=== PATIENT | female | born 1985 | race Caucasian/White ===

== ENCOUNTER 2017-08-06 14:49 | Emergency (ER) | payer OTHER, MEDICAID ==
[~2017-08-06] VITALS: Ht 170.2 cm; Wt 114.8 kg
[2017-08-06 15:05] VITALS: BP 122/87
--- NOTE | 2017-08-06 15:48 | NUR ---
31/F BIB SELF C/O vaginal bleeding x2 weeks; changing a pad every 1 hour.hx GALL BLADDER REMOVAL 2010, 3 C- SECTIONS, SURG FOR RIGHT ECTOPIC PREG 2005. DENIES N/V/D. AAOX4 WITH EVEN AND STEADY GAIT; LUNGS CLEAR BL. PATIENT STATES PAIN OF 0/10 AT THIS TIME. PATIENT POSITIONED FOR COMFORT; HOB ELEVATED; BEDRAILS UP X2; BED DOWN. ER MD MADE AWARE OF PT STATUS.
[2017-08-06 15:56] LABS: BASOPHILS # (AUTO) 0.3 K/uL (0.00-0.22); EOSINOPHILS # (AUTO) 0.2 K/uL (0-0.4); HEMATOCRIT 32.4 % (36-48); HEMOGLOBIN 10.6 g/dL (12.0-16.0); LYMPHOCYTES # (AUTO) 2.8 K/uL (2.5-16.5); MEAN CORPUSCULAR HEMOGLOBIN 27 pg (27-31); MEAN CORPUSCULAR HGB CONC 33 g/dL (33-37); MEAN CORPUSCULAR VOLUME 80.8 fL (80-94); MONOCYTES # (AUTO) 0.7 K/uL (0.8-1.0); NEUTROPHILS # (AUTO) 5.5 K/uL (1.8-7.7); PLATELET COUNT (AUTO) 307 K/uL (140-450); RED BLOOD CELL COUNT(AUTO) 4.01 MIL/uL (4.20-5.40); RED CELL DISTRIBUTION WIDTH 12.9 % (11.6-13.7); WHITE BLOOD COUNT (AUTO) 9.5 K/uL (4.8-10.8)
[2017-08-06 16:12] LABS: PROTHROMBIN TIME 10.4 secs (10.8-13.4)
[2017-08-06 16:16] LABS: ANION GAP 12.2 (8-16); CARBON DIOXIDE 26.4 mmol/L (21-32); CREATININE 0.7 mg/dL (0.6-1.3); POTASSIUM 3.6 mmol/L (3.5-5.1)
[2017-08-06 16:22] LABS: ALBUMIN 3.6 g/dL (3.4-5.0); TOTAL BILIRUBIN 0.2 mg/dL (0.0-1.0)
--- NOTE | 2017-08-06 16:29 | NUR ---
Mary liz in ED - 08/06/17 at 1629 by [facility] Crutches dispensed. Taught proper use BY TRAVIS SHERIFF, patient returned demo.
[2017-08-06 17:01] VITALS: BP 111/75
--- NOTE | 2017-08-06 17:01 | NUR ---
Patient seen and discharged by Dr. Preito with v/s stable. Written and verbal after care instructions given and explained. Patient alert, oriented and verbalized understanding of instructions. Ambulatory with steady gait. All questions addressed prior to discharge. ID band removed. Patient advised to follow up with PMD. Rx of Provera given. Patient educated on indication of medication including possible reaction and side effects. Opportunity to ask questions provided and answered.
== END 2017-08-06 17:01 | disposition home or self-care (01) ==
LOC: MED 14:49
DX: N93.8 Other specified abnormal uterine and vaginal bleeding (principal)
CPT/HCPCS: 36415; 76830; 80053; 85025; 85610; 85730; 86900; 86901; 99285; Q0092

== ENCOUNTER 2021-11-17 13:43 | Emergency (ER) | payer MEDICAID, OTHER ==
[~2021-11-17] VITALS: Ht 172.7 cm; Wt 116.1 kg
[2021-11-17 13:45] VITALS: BP 123/89
[2021-11-17] MEDS ORDERED: KETOROLAC 30 MG/ML VIAL IM ONE (14:10)
[2021-11-17] MEDS ORDERED: diazePAM 5 MG TAB PO ONE (14:10)
--- NOTE | 2021-11-17 14:45 | NUR ---
35/F PRESENTS TO ED WITH C/O LOWER BACK PAIN SINCE YESTERDAY, DENIES RECENT INJURY OR TRAUMA. REPORTS TAKING EXCEDRIN WITH MILD RELIEF, DENIES URINARY SYMPTOMS.
[2021-11-17 15:10] LABS: ANION GAP 10.8 (8-16); CARBON DIOXIDE 26.8 mmol/L (21-32); CREATININE 0.8 mg/dL (0.6-1.3); POTASSIUM 3.6 mmol/L (3.5-5.1)
[2021-11-17 15:24] LABS: BASOPHILS # (AUTO) 0.1 K/uL (0.00-0.22); BASOPHILS % (AUTO) 0.6 % (0.0-2.0); EOSINOPHILS # (AUTO) 0.1 K/uL (0-0.4); EOSINOPHILS % (AUTO) 0.6 % (0.0-4.0); HEMOGLOBIN 12.1 g/dL (12.0-16.0); LYMPHOCYTES # (AUTO) 2.1 K/uL (2.5-16.5); LYMPHOCYTES % (AUTO) 21.5 % (20.5-51.1); MEAN CORPUSCULAR HEMOGLOBIN 26 pg (27-31); MEAN CORPUSCULAR HGB CONC 33 g/dL (33-37); MEAN CORPUSCULAR VOLUME 80.5 fL (80-94); MONOCYTES # (AUTO) 0.6 K/uL (0.8-1.0); MONOCYTES % (AUTO) 5.9 % (1.7-9.3); NEUTROPHILS # (AUTO) 6.8 K/uL (1.8-7.7); NEUTROPHILS % (AUTO) 71.4 % (42.2-75.2); PLATELET COUNT (AUTO) 331 K/uL (140-450); RED BLOOD CELL COUNT(AUTO) 4.59 MIL/uL (4.20-5.40); RED CELL DISTRIBUTION WIDTH 15.7 % (11.6-13.7); WHITE BLOOD COUNT (AUTO) 9.6 K/uL (4.8-10.8)
[2021-11-17] MEDS ORDERED: NAPR-1560 PO (15:45)
[2021-11-17] MEDS ORDERED: METH-1681 PO (15:45)
[2021-11-17] MEDS ORDERED: LID5T TP (15:45)
[2021-11-17] MEDS ORDERED: HYDROcodone/APAP 7.5/325 MG 1 TAB PO ONE (15:45)
[2021-11-17 16:00] VITALS: BP 130/91
--- NOTE | 2021-11-17 16:01 | NUR ---
Patient discharged with v/s stable. Written and verbal after care instructions ABOUT ACUTE BACK PAIN given and explained. Patient alert, oriented and verbalized understanding of instructions. Ambulatory with steady gait. All questions addressed prior to discharge. ID band removed. Patient advised to follow up with PMD. Rx of LIDODERM PATCH, ROBAXIN AND NAPROXEN given. Patient educated on indication of medication including possible reaction and side effects. Opportunity to ask questions provided and answered.
== END 2021-11-17 16:01 | disposition home or self-care (01) ==
LOC: MED 13:43
DX: M54.50 Low back pain, unspecified (principal); Z79.899 Other long term (current) drug therapy; Z79.1 Long term (current) use of non-steroidal anti-inflammatories (NSAID)
CPT/HCPCS: 36415; 80048; 81002; 81025; 85025; 96372; 99283; J1885

== ENCOUNTER 2023-06-20 17:08 | Emergency (ER) | payer BC, OTHER ==
[~2023-06-20] VITALS: Ht 172.7 cm; Wt 105.2 kg
[~2023-06-20 17:08] MED LIST: LID5T TP; METH-1681 PO; NAPR-1560 PO
[2023-06-20 17:47] VITALS: BP 139/94; PULSE 74; RESP 16; TEMP 98.2; O2SAT 100
[2023-06-20] MEDS: KETOROLAC 30 MG/ML VIAL IM ONE (19:10)
[2023-06-20] MEDS ORDERED: LID5T TP (19:58)
[2023-06-20] MEDS ORDERED: CYCL-711 PO (19:58)
[2023-06-20] MEDS ORDERED: IBUP-2213 PO (19:58)
== END 2023-06-20 20:14 | disposition home or self-care (01) ==
LOC: MED 17:08
DX: S16.1XXA Strain of muscle, fascia and tendon at neck level, initial encounter (principal); R51.9 Headache, unspecified; I10 Essential (primary) hypertension; Z79.899 Other long term (current) drug therapy; Z79.1 Long term (current) use of non-steroidal anti-inflammatories (NSAID); X58.XXXA Exposure to other specified factors, initial encounter; Y92.89 Other specified places as the place of occurrence of the external cause; Y93.89 Activity, other specified; Y99.8 Other external cause status
CPT/HCPCS: 81025; 96372; 99283; J1885